=== PATIENT | female | born 1955 | race Caucasian/White ===

== ENCOUNTER 2017-01-26 07:32 | Emergency (ER) | payer OTHER ==
--- NOTE | 2017-01-26 07:38 | EDPHY ---
H & P HPI/ROS: CHIEF COMPLAINT: Myalgias HISTORY OF PRESENT ILLNESS: The patient is a 61 y/o female complaining of diffuse myalgias onset 05:00, 2 hours ago. She currently has a UTI for which she has been taking nitrofurantoin. She forgot to take her dose last night and woke up with bladder pain around 02:00 this morning and took her missed dose at that time. At 05:00 this morning she woke up with chills and diffuse myalgias. She subsequently had two episodes of vomiting and nonbloody diarrhea. She was diagnosed with COPD in September and uses home oxygen and reports her home SpO2 is in the low 90s to high 80s chronically. Her oxygen saturation was lower than that this morning.She endorses an ongoing productive cough. Denies sore throat. She does not have chest pain. No calf pain or swelling. She is not currently experiencing abdominal or bladder pain, nausea has subsided, no further vomiting or diarrhea. REVIEW OF SYSTEMS: A ten point review of systems was performed and is negative with the exception of the items mentioned in the HPI. Source: Patient, Family Exam Limitations: No limitations - Medical/Surgical History PMH: PMH includes: 1. COPD diagnosed September, - uses home O2 at bedtime. 2. UTI Hx Chronic Respiratory Disease: Yes Other PMH: COPD - Social History Smoking Status: Former smoker (Quit 30 yrs ago) Drug Use: None Additional Social History: at bedside. They live in [place]. - Physical Exam Exam: General Appearance: Alert. Vital signs reviewed. SpO2 89% on 2 LNC O2. BP 136/ 88. Afebrile. Eyes: Pupils equal and round, no conjunctival injection, no discharge. Anicteric. ENT, Mouth: Mucous membranes are moist, no oropharyngeal erythema or edema. Neck: No lymphadenopathy, supple. Trachea midline. Respiratory: Lungs are clear to auscultation; no wheezes, rales, or rhonchi. Cardiovascular: Regular rate and rhythm; no murmur, rub, or gallop. Gastrointestinal: Abdomen is soft and nontender, no masses or organomegaly, bowel sounds normal. Skin: Warm and dry, no rashes on exposed skin, normal color. Back: Nontender to palpation over the thoracolumbar spine. No CVAT. Extremities: No lower extremity edema, no calf tenderness or swelling. Neurological: Alert and oriented. Moving all four extremities easily and equally. Psychiatric: Normal affect. Constitutional: Initial Vital Signs Temperature (C) 36.9 C 01/26/17 07:32 Heart Rate 87 01/26/17 07:32 Respiratory Rate 20 01/26/17 07:32 Blood Pressure 136/88 H 01/26/17 07:32 O2 Sat (%) 93 01/26/17 07:32 O2 Delivery Mode Room Air O2 (L/minute) 3 Allergies/Adverse Reactions: azithromycin Allergy (Verified 01/26/17 07:46) codeine Allergy (Verified 01/26/17 07:46) Home Medications: Medication Instructions Recorded Nitrofurantoin Macrobid [Macrobid] 01/26/17 Stiolto Respimat Inhal [place] 01/26/17 Ventolin Hfa 01/26/17 Medical Decision Making - Diagnostics Imaging: Discussed imaging studies w/ econometrician Radiologist, I viewed and interpreted images myself ED Course/Re-evaluation: IV established, sepsis labs drawn, chest x-ray ordered, patient placed on supplemental oxygen via nasal canula at 4 LPM O2for mild hypoxemia. 0804: Reassessed patient. She continues to be uncomfortable due to myalgias. 75 mcg IV Fentanyl administered at. Labs pending. Her presentation does not meet sepsis criteria. 0939: Reassessed patient. She feels improved after medication. Lab results largely unremarkable. Her UA does not indicate UTI (blood and trace bacteria), though she is currently on antibiotics. No CVAT, no fever, no more vomiting or diarrhea. I do not think that she has pyelonephritis. Duo neb administered. CXR shows mixed groundglass and reticular abnormalities in mid and lower lung cruz--in discussion with her she thinks that this is what has been seen previously. These xray findings suggest viral pneumonitis or bronchitis per radiologist's report. 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 She has been using Stiolto (tiotropium/olodaterol) and albuterol at home. I do not think she has a bacterial pneumonia. Aside from myalgias, her presentation is not suggestive of influenza. She has had influenza vaccination. This could be a COPD exacerbation, although the myalgias are not typical. I am not recommending steroids at this time, as it is not clear that this is an exacerbation of her recently diagnosed COPD. 1053: Reassessed patient. She reports her myalgias have nearly resolved. She continues to be mildly hypoxemic at 89% on 2 LPM O2, though she states this is where she normally is. Chest x-ray shows possible pneumonitis or bronchitis, which is likely chronic for her. Discussed lab results again. She feels ready to go home and declines my offer for admission. She understands she needs to follow up with her PCP this week without fail (through [place]). She will receive another neb treatment prior to discharge. Fever and pain control instructions as well as return precautions discussed. She understands she needs to finish her antibiotics for UTI. She and her have discussed moving from [place] because of her oxygen requirement. She will be using her home O2 around the clock. 1100: SpO2 91% on 1 LPM O2. - Data Points Laboratory Results: Laboratory Results 01/26/17 07:30 01/26/17 07:30 Medications Given: Discontinued Medications Albuterol/Ipratropium (Duoneb) 3 ml IH EDNOW ONE Stop: 01/26/17 10:57 Last Admin: 01/26/17 11:15 Dose: 3 ml Fentanyl (Sublimaze) 75 mcg IVP EDNOW ONE Stop: 01/26/17 08:18 Last Admin: 01/26/17 08:50 Dose: 75 mcg Departure - Departure Disposition: Home, Routine, Self-Care Clinical Impression: Viral infection Condition: Good Instructions: Viral Syndrome (ED) Additional Instructions: 1. Follow up with primary care provider this week without fail. 2. Finish current UTI antibiotic treatment. 3. Continue to use home oxygen as prescribed. 4. Use Tylenol and Ibuprofen as below for fever and pain for the next 3-5 days. 5. Return to Emergency Department for uncontrollable vomiting, inability to keep down fluids, Uncontrollable fever, or worsening symptoms. Adult Pain & Fever Control: We recommend Acetaminophen (Tylenol) and Ibuprofen (Motrin,Advil) for pain and fever control. When fever is high or pain severe, both drugs can be used at the same time, but at different intervals. Please note the time differences. Your dose is: Acetaminophen 650mg every 4 to 6 hours Ibuprofen 600mg every 6-8 hours with food Note: do not take Acetaminophen with Hydrocodone (Vicodin, Lortab) or Oxycodone (Percocet). These medications also contain Acetaminophen. No more than 3000mg of Acetaminophen should be taken in 24 hours (for an adult). Referrals: Ceci Stone MD [Medical Doctor] - As per Instructions Report Scribed for: Karon Juarez Report Scribed by: Isak Sorensen Date of Report: 01/26/17 Time of Report: 11:20 Physician Review and Approval Statement: 01/26/17 07:37 Portions of this note were transcribed by the medical accountant. I, Dr. Karon Juarez, personally performed the history, physical exam, and medical decision- making; and confirmed the accuracy of the information in the transcribed note.
[2017-01-26 07:46] VITALS: TEMP 98.4
[2017-01-26 07:54] LABS: % IMMATURE GRANULYOCYTES 0.3 % (0.0-1.1); ABSOLUTE IMMATURE GRANULOCYTES 0.01 10^3/uL (0.00-0.10); ADD DIFF? NO; ADD MORPH? NO; ADD SCAN? YES; ATYPICAL LYMPHOCYTE FLAG 0 (0-99); FRAGMENT RBC FLAG 0 (0-99); HEMATOCRIT 46.8 % (38.0-47.0); HEMOGLOBIN 14.3 g/dL (12.6-16.3); LEFT SHIFT FLG 60 (0-99); LIPEMIA HEMOLYSIS FLAG 80 (0-99); MEAN CELL HEMOGLOBIN 27.9 pg (27.9-34.1); MEAN CELL HEMOGLOBIN CONCENTR. 30.6 g/dL (32.4-36.7); MEAN CELL VOLUME 91.2 fL (81.5-99.8); MEAN PLATELET VOLUME 9.4 fL (8.7-11.7); PLATELET CLUMPS FLAG 20 (0-99); PLATELET COUNT 302 10^3/uL (150-400); RED BLOOD CELL COUNT 5.13 10^6/uL (4.18-5.33); RED CELL DISTRIBUTION WIDTH 15.6 % (11.5-15.2)
[2017-01-26 08:03] LABS: ANION GAP 11 mEq/L (8-16); BILIRUBIN,TOTAL 0.9 mg/dL (0.1-1.4); CALCIUM 9.1 mg/dL (8.5-10.4); CARBON DIOXIDE 24 mEq/l (22-31); CHLORIDE 108 mEq/L (97-110); CREATININE 0.7 mg/dL (0.6-1.0); GLOMERULAR FILTRATION RATE > 60; GLUCOSE 71 mg/dL (70-100); POTASSIUM 3.8 mEq/L (3.5-5.2); SODIUM 143 mEq/L (134-144)
[2017-01-26] MEDS ORDERED: fentaNYL 100 MCG/2 ML INJ IVP ONE (08:17)
[2017-01-26 08:18] LABS: COLOR YELLOW; LEUKOCYTE ESTERASE,URINE NEGATIVE (NEGATIVE); NITRITE,URINE NEGATIVE (NEGATIVE)
[2017-01-26 08:20] LABS: BACTERIA TRACE /hpf (NONE SEEN)
[2017-01-26 08:21] LABS: APTT 21.3 SEC (23.0-38.0); INR 0.94 (0.83-1.16); PROTIME(PATIENT) 12.5 SEC (12.0-15.0)
[2017-01-26 08:44] LABS: SCAN NEGATIVE
[2017-01-26 09:10] VITALS: PULSE 82; RESP 18
[2017-01-26] MEDS ORDERED: IPRATROPIUM/ALBUTEROL 3 ML DEYVIAL IH ONE (10:56)
[2017-01-26 11:48] VITALS: BP 144/95; O2SAT 91
== END 2017-01-26 11:47 | disposition home or self-care (01) ==
LOC: EDUNIT#
DX: B34.9 Viral infection, unspecified (principal); J44.9 Chronic obstructive pulmonary disease, unspecified; Z87.891 Personal history of nicotine dependence
CPT/HCPCS: 96374; J3010